=== PATIENT | male | born 1965 | race Caucasian/White ===

== ENCOUNTER 2017-11-13 20:33 | Inpatient (IN) | payer BC ==
[~2017-11-13] VITALS: Ht 167.6 cm; Wt 73.2 kg
[2017-11-13 20:42] VITALS: Ht 167.6 cm; Wt 73.2 kg
[2017-11-13 21:12] LABS: BASOPHIL % 0.2 % (0-2); PLATELET COUNT 342 x10^3mcL (130-400); RED CELL DISTRIBUTION WIDTH 16.6 % (11.5-14.5)
[2017-11-13 21:20] LABS: CALCIUM 8.4 mg/dL (8.5-10.1); CARBON DIOXIDE 32.1 mmol/L (21-32); CREATININE SERUM 1.4 mg/dL (0.7-1.3); POTASSIUM SERUM 5.1 mmol/L (3.5-5.1)
[2017-11-13 21:25] LABS: BILIRUBIN TOTAL 1.2 mg/dL (0.20-1.00)
[2017-11-13 21:29] LABS: ALBUMIN 2.7 g/dL (3.4-5.0)
[2017-11-13 23:06] VITALS: BP 124/85
[2017-11-14 01:01] LABS: MAGNESIUM 1.6 mg/dL (1.8-2.4); PHOSPHOROUS 3.1 mg/dL (2.5-4.9)
[2017-11-14 01:11] LABS: FREE T4 0.95 ng/dL (0.76-1.46)
[2017-11-14 01:12] LABS: FREE THYROXINE INDEX 1.4 ug/dL (1.4-4.5); T4(THYROXINE) 3.2 ug/dL (4.7-13.3)
[2017-11-14 01:17] LABS: T3 TOTAL 0.48 ng/mL
[2017-11-14 06:00] VITALS: BP 129/69
[2017-11-14 06:41] LABS: CALCIUM 8.4 mg/dL (8.5-10.1); CREATININE SERUM 1.4 mg/dL (0.7-1.3); MAGNESIUM 1.8 mg/dL (1.8-2.4); PHOSPHOROUS 3.4 mg/dL (2.5-4.9); POTASSIUM SERUM 4.7 mmol/L (3.5-5.1)
[2017-11-14 06:50] LABS: CARBON DIOXIDE 27.2 mmol/L (21-32)
[2017-11-14 06:55] LABS: BASOPHIL % 0.3 % (0-2); PLATELET COUNT 321 x10^3mcL (130-400)
[2017-11-14 06:56] LABS: RED CELL DISTRIBUTION WIDTH 16.5 % (11.5-14.5)
[2017-11-14 09:07] VITALS: BP 111/72
[2017-11-14 12:13] VITALS: BP 106/69
[2017-11-14 16:33] VITALS: BP 115/69
[2017-11-14 17:22] LABS: microscopic required? NO
[2017-11-14 17:34] LABS: urine erythrocyte NEGATIVE (NEGATIVE)
[2017-11-14 17:40] LABS: AMPHETAMINE QUAL UR NONE DETECTED (See below)
[2017-11-14 19:35] VITALS: BP 115/64
[2017-11-14 21:09] VITALS: BP 106/67
[2017-11-15 05:37] VITALS: BP 116/65
[2017-11-15 06:17] LABS: CALCIUM 8.1 mg/dL (8.5-10.1); CARBON DIOXIDE 31.2 mmol/L (21-32); CHLORIDE SERUM 108 mmol/L (98-107); CREATININE SERUM 1.2 mg/dL (0.7-1.3); GFR1 > 60 mL/min; GLUCOSE SERUM 74 mg/dL (74-106); POTASSIUM SERUM 4.5 mmol/L (3.5-5.1); SODIUM SERUM 143 mmol/L (136-145)
[2017-11-15 07:01] LABS: BASOPHIL % 0.4 % (0-2); PLATELET COUNT 274 x10^3mcL (130-400)
[2017-11-15 07:02] LABS: RED CELL DISTRIBUTION WIDTH 16.3 % (11.5-14.5)
[2017-11-15 09:06] VITALS: BP 103/65
[2017-11-15] MEDS ORDERED: PROTONIX40 MG PO (10:51)
[2017-11-15 11:31] VITALS: BP 103/65
== END 2017-11-15 11:55 | disposition home or self-care (01) | DRG 380 ==
LOC: ED 20:33 → DU 22:19
PROVIDERS: Emergency Medicine; Internal Medicine
PROC: 0W3P8ZZ Control Bleeding in Gastrointestinal Tract, Via Natural or Artificial Opening Endoscopic (ICD-10-PCS; principal; 2017-11-14 11:00)
PROC: 0DB68ZX Excision of Stomach, Via Natural or Artificial Opening Endoscopic, Diagnostic (ICD-10-PCS; 2017-11-14 11:00)
DX: K22.11 Ulcer of esophagus with bleeding (principal); E43 Unspecified severe protein-calorie malnutrition; N17.0 Acute kidney failure with tubular necrosis; K44.9 Diaphragmatic hernia without obstruction or gangrene; K22.6 Gastro-esophageal laceration-hemorrhage syndrome; K57.91 Diverticulosis of intestine, part unspecified, without perforation or abscess with bleeding; E83.51 Hypocalcemia; K31.89 Other diseases of stomach and duodenum; E83.42 Hypomagnesemia; Z88.5 Allergy status to narcotic agent; Z80.0 Family history of malignant neoplasm of digestive organs; Z68.24 Body mass index [BMI] 24.0-24.9, adult
CPT/HCPCS: 43235; 84439; C9113; J1200; J1610; J2250; J2310; J2405; J2550; J3010; J3490; J7030